=== PATIENT | female | born 1955 | race American Indian/Alaskan Native ===

== ENCOUNTER 2018-01-30 12:27 | Inpatient (IN) | payer OTHER ==
[2018-01-30] MEDS ORDERED: CARDIZEM ONE (12:44)
[2018-01-30] MEDS ORDERED: NACL 0.9% 1000 ML 1,000 ML ONE (12:45)
[2018-01-30] MEDS ORDERED: CARDIZEM IV ONE (12:48)
[2018-01-30] MEDS ORDERED: CARDIZEM/D5W 100MG/100ML 100 MG/100 ML BAG IV SCH (13:00)
--- NOTE | 2018-01-30 13:07 | Emergency Department Report ---
ED Palpitations HPI - General Stated Complaint: CHEST PAIN Source: patient, EMS, old records reviewed Mode of arrival: Stretcher Limitations: No Limitations - History of Present Illness Initial Comments: 63-year-old female with a past medical hypertension of diabetes, atrial fibrillation presents to the hospital complaining of palpitations and left- sided burning chest pain since 10 AM. Symptoms are constant without aggravating or alleviating factors. She denies nausea, vomiting, diaphoresis, or shortness of breath. Patient has been out of her Coumadin 3 days secondary to a pharmacy issue. She does not know the names of her other medication but states she has been compliant. 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 Last hospitalization here was in December 2015. Stress test normal at that time. Echocardiogram showed EF of 60-65% with mild concentric LVH and abnormal left ventricular diastolic function. - Related Data Home Medications Medication Instructions Recorded Confirmed Last Taken Hydrochlorothiazide [HCTZ] 25 mg PO QAM 01/17/16 01/17/16 01/17/16 amLODIPine [Norvasc] 10 mg PO DAILY 01/17/16 01/17/16 01/17/16 Previous Rx's Medication Instructions Recorded Last Taken Type Lisinopril [Zestril TAB] 20 mg PO QDAY #30 tablet 01/19/16 Unknown Rx Metoprolol [Lopressor TAB] 50 mg PO BID #60 tablet 01/19/16 Unknown Rx Warfarin [Coumadin] 10 mg PO QDAY #14 tablet 01/19/16 Unknown Rx Allergies Allergy/AdvReac Type Severity Reaction Status Date / Time No Known Allergies Allergy Verified 01/30/18 12:52 ED Review of Systems ROS: Stated complaint: CHEST PAIN Other details as noted in HPI Comment: All other systems reviewed and negative ED Past Medical Hx - Past Medical History Hx Hypertension: Yes Hx Diabetes: Yes Additional medical history: AFIB - Surgical History Additional Surgical History: hysterectomy - Social History Smoking Status: Never Smoker Substance Use Type: Alcohol - Medications Home Medications: Home Medications Medication Instructions Recorded Confirmed Last Taken Type Hydrochlorothiazide [HCTZ] 25 mg PO QAM 01/17/16 01/17/16 01/17/16 History amLODIPine [Norvasc] 10 mg PO DAILY 01/17/16 01/17/16 01/17/16 History Lisinopril [Zestril TAB] 20 mg PO QDAY #30 tablet 01/19/16 Unknown Rx Metoprolol [Lopressor TAB] 50 mg PO BID #60 tablet 01/19/16 Unknown Rx Warfarin [Coumadin] 10 mg PO QDAY #14 tablet 01/19/16 Unknown Rx ED Physical Exam - General Limitations: No Limitations - Other Other exam information: General: No limitations, patient is alert in no acute distress Head exam: Atraumatic, normocephalic Eyes exam: Normal appearance ENT: Moist mucous membrane, normal oropharynx Neck exam: Normal inspection, full range of motion, no meningismus nontender Respiratory exam: Clear to auscultation bilateral, no wheezes, rales, crackles Cardiovascular: Tachycardic irregular rhythm Abdomen: Soft, nondistended, and nontender, with normal bowel sounds, no rebound, or guarding Extremity: Full range of motion normal inspection no deformity, no calf tenderness or edema Back: Normal Inspection, full range of motion, no tenderness Neurologic: Alert, oriented x3, cranial nerves intact, no motor or sensory deficit Psychiatric: normal affect, normal mood Skin: Warm, dry, intact ED Course Vital Signs 01/30/18 01/30/18 01/30/18 12:34 12:36 12:40 Temperature Pulse Rate 167 H 159 H 147 H Respiratory 22 22 17 Rate Blood Pressure 118/91 O2 Sat by Pulse 99 99 99 Oximetry 01/30/18 01/30/18 01/30/18 12:45 12:48 12:50 Temperature 98.2 F Pulse Rate 150 H 97 H 91 H Respiratory 20 14 19 Rate Blood Pressure 118/91 O2 Sat by Pulse 99 99 99 Oximetry 01/30/18 01/30/18 01/30/18 12:56 13:00 13:03 Temperature Pulse Rate 91 H 91 H 90 Respiratory 18 14 Rate Blood Pressure 118/91 O2 Sat by Pulse 99 99 Oximetry 01/30/18 01/30/18 01/30/18 13:06 13:10 13:15 Temperature Pulse Rate 120 H 108 H 106 H Respiratory 14 21 19 Rate Blood Pressure 140/80 140/80 144/78 O2 Sat by Pulse 100 99 99 Oximetry 01/30/18 01/30/18 01/30/18 13:20 13:26 13:30 Temperature Pulse Rate 104 H 134 H 115 H Respiratory 16 19 18 Rate Blood Pressure 144/78 144/78 144/78 O2 Sat by Pulse 99 99 99 Oximetry 01/30/18 01/30/18 01/30/18 13:36 13:40 13:46 Temperature Pulse Rate 136 H 130 H 103 H Respiratory 16 17 16 Rate Blood Pressure 140/80 140/80 116/78 O2 Sat by Pulse 99 99 99 Oximetry 01/30/18 01/30/18 01/30/18 13:50 13:56 14:00 Temperature Pulse Rate 102 H 118 H 99 H Respiratory 16 13 15 Rate Blood Pressure 116/78 116/78 116/78 O2 Sat by Pulse 100 99 99 Oximetry 01/30/18 01/30/18 01/30/18 14:06 14:10 14:15 Temperature Pulse Rate 105 H 100 H 100 H Respiratory 15 14 15 Rate Blood Pressure 133/76 133/76 118/73 O2 Sat by Pulse 99 99 99 Oximetry - Reevaluation(s) Reevaluation #1: 01/30/18 13:09 After Cardizem 20 mg heart rate decreased from 160s to high 90s up to 120. Cardizem drip initiated for further rate control. Awaiting coag results prior to Lovenox administration. - Consultations Consultation #1: 01/30/18 14:25 case d/w with kdae Bronson with [facility], will consult ED Medical Decision Making - Lab Data Result diagrams: 01/30/18 13:05 01/30/18 13:05 Lab Results 01/30/18 01/30/18 01/30/18 Range/Units 13:05 13:05 13:05 WBC 6.3 (4.5-11.0) K/mm3 RBC 5.34 H (3.65-5.03) M/mm3 Hgb 13.7 (10.1-14.3) gm/dl Hct 42.7 (30.3-42.9) % MCV 80 (79-97) fl MCH 26 L (28-32) pg MCHC 32 (30-34) % RDW 13.9 (13.2-15.2) % Plt Count 226 (140-440) K/mm3 Lymph % (Auto) 18.8 (13.4-35.0) % [place] % (Auto) 6.9 (0.0-7.3) % Eos % (Auto) 1.0 (0.0-4.3) % Baso % (Auto) 0.5 (0.0-1.8) % Lymph # 1.2 (1.2-5.4) K/mm3 [place] # 0.4 (0.0-0.8) K/mm3 Eos # 0.1 (0.0-0.4) K/mm3 Baso # 0.0 (0.0-0.1) K/mm3 Seg Neutrophils % 72.8 H (40.0-70.0) % Seg Neutrophils # 4.6 (1.8-7.7) K/mm3 PT 13.9 (12.2-14.9) Sec. INR 1.02 (0.87-1.13) APTT 32.2 (24.2-36.6) Sec. Sodium 141 (137-145) mmol/L Potassium 3.6 (3.6-5.0) mmol/L Chloride 102.5 (98-107) mmol/L Carbon Dioxide 25 (22-30) mmol/L Anion Gap 17 mmol/L BUN 16 (7-17) mg/dL Creatinine 0.7 (0.7-1.2) mg/dL Estimated GFR > 60 ml/min BUN/Creatinine Ratio 23 % Glucose 145 H (65-100) mg/dL Calcium 10.2 (8.4-10.2) mg/dL Magnesium 1.80 (1.7-2.3) mg/dL Total Creatine Kinase (30-135) units/L CK-MB (CK-2) (0.0-4.0) ng/mL CK-MB (CK-2) Rel Index (0-4) Troponin T (0.00-0.029) ng/mL TSH (0.270-4.200) mlU/mL Free T4 (0.76-1.46) ng/dL 01/30/18 01/30/18 Range/Units 13:05 13:05 WBC (4.5-11.0) K/mm3 RBC (3.65-5.03) M/mm3 Hgb (10.1-14.3) gm/dl Hct (30.3-42.9) % MCV (79-97) fl MCH (28-32) pg MCHC (30-34) % RDW (13.2-15.2) % Plt Count (140-440) K/mm3 Lymph % (Auto) (13.4-35.0) % [place] % (Auto) (0.0-7.3) % Eos % (Auto) (0.0-4.3) % Baso % (Auto) (0.0-1.8) % Lymph # (1.2-5.4) K/mm3 [place] # (0.0-0.8) K/mm3 Eos # (0.0-0.4) K/mm3 Baso # (0.0-0.1) K/mm3 Seg Neutrophils % (40.0-70.0) % Seg Neutrophils # (1.8-7.7) K/mm3 PT (12.2-14.9) Sec. INR (0.87-1.13) APTT (24.2-36.6) Sec. Sodium (137-145) mmol/L Potassium (3.6-5.0) mmol/L Chloride (98-107) mmol/L Carbon Dioxide (22-30) mmol/L Anion Gap mmol/L BUN (7-17) mg/dL Creatinine (0.7-1.2) mg/dL Estimated GFR ml/min BUN/Creatinine Ratio % Glucose (65-100) mg/dL Calcium (8.4-10.2) mg/dL Magnesium (1.7-2.3) mg/dL Total Creatine Kinase 105 (30-135) units/L CK-MB (CK-2) 3.1 (0.0-4.0) ng/mL CK-MB (CK-2) Rel Index 2.9 (0-4) Troponin T < 0.010 (0.00-0.029) ng/mL TSH 0.862 (0.270-4.200) mlU/mL Free T4 1.26 (0.76-1.46) ng/dL - EKG Data -: EKG Interpreted by Me (SVT rate 166) EKG shows normal: axis (QRS 46), QRS complexes (QRSD 82), ST-T waves (inferior and lateral T-wave inversions) Rate: tachycardia - EKG Data When compared to previous EKG there are: changes noted 01/30/18 14:34 repeat ekg afib, rate 109, qrs axis 33, QTC 369, QRSD 100, NO STEMI - Radiology Data Radiology results: report reviewed AP CHEST: HISTORY: chest pain AP view of the chest demonstrates a normal mediastinal and cardiac contour with clear lungs and normal bony and soft tissue structures. IMPRESSION: Unremarkable AP chest. - Medical Decision Making afib rvr + hx noncompliant with coumadin. Lovenox given labs unremarkable current meds unknown cardiology consulted hospitalist informed for admission. - Differential Diagnosis A. fib RVR, thyroid, medication noncompliance, [place] Critical Care Time: No Critical care attestation.: If time is entered above; I have spent that time in minutes in the direct care of this critically ill patient, excluding procedure time. ED Disposition Clinical Impression: Diabetes mellitus, Hypertension, Atrial fibrillation with rapid ventricular response, Noncompliance with medication regimen Disposition: OP ADMIT IP TO THIS HOSP Is pt being admited?: Yes Does the pt Need Aspirin: No (given lovenox) Condition: Stable Time of Disposition: 14:23 (DR Dickerson/hosp)
[2018-01-30 13:32] LABS: Basophils % (Auto) 0.5 % (0.0-1.8); Eosinophils # (Auto) 0.1 K/mm3 (0.0-0.4); Hematocrit 42.7 % (30.3-42.9); Hemoglobin 13.7 gm/dl (10.1-14.3); Lymphocytes # (Auto) 1.2 K/mm3 (1.2-5.4); Lymphocytes % (Auto) 18.8 % (13.4-35.0); Mean Corpuscular HGB Conc 32 % (30-34); Mean Corpuscular Volume 80 fl (79-97); Monocytes # (Auto) 0.4 K/mm3 (0.0-0.8); Monocytes % (Auto) 6.9 % (0.0-7.3); Platelet Count 226 K/mm3 (140-440); Red Blood Count 5.34 M/mm3 (3.65-5.03); Red Cell Distribution Width 13.9 % (13.2-15.2)
[2018-01-30 13:35] LABS: Mean Corpuscular Hemoglobin 26 pg (28-32)
--- NOTE | 2018-01-30 13:36 | XRay Report ---
AP CHEST: HISTORY: chest pain AP view of the chest demonstrates a normal mediastinal and cardiac contour with clear lungs and normal bony and soft tissue structures. IMPRESSION: Unremarkable AP chest.
[2018-01-30 13:38] LABS: BUN/Creatinine Ratio 23; Blood Urea Nitrogen 16 mg/dL (7-17); Calcium 10.2 mg/dL (8.4-10.2); Creatine Kinase MB 3.1 ng/mL (0.0-4.0); Hemolysis Index 1
[2018-01-30 13:41] LABS: INR 1.02 (0.87-1.13)
[2018-01-30 13:42] LABS: Partial Thromboplastin Time 32.2 Sec. (24.2-36.6)
[2018-01-30 13:49] LABS: Free T4 (Free Thyroxine) 1.26 ng/dL (0.76-1.46)
[2018-01-30] MEDS ORDERED: LOVENOX SUB-Q ONE (14:21)
--- NOTE | 2018-01-30 14:33 | History and Physical Report ---
History of Present Illness Chief complaint: my heart is beating fast History of present illness: 63 YO Female with A Fib, DM, HTN, Obesity presents to ED for evaluation. Pt states that she has experienced chest palpitations and pain in her chest for the past 4 hours. Pt states that symptoms began around 10:00 hrs and have persisted since that time. Pt transported to [facility] for further care and evaluation. Pt seen and evaluated in ED and found to have A Fib with RVR. Pt initiated on cardizem drip. Cardiology consulted in ED. Pt initially admitted to ICU on cardizem drip, but was weaned off drip and initiated on beta mayito therapy. Pt found to have symptoms consistent with ACS and diastolic heart failure. Pt admitted to telemetry. Pt denies fever, chills, NVD, syncope, unilateral leg swelling, calf pain, individual/family history of DVT/PE, productive cough, unintentional weight loss, night sweats. Past History Past Medical History: atrial fib, diabetes, hypertension Past Surgical History: hysterectomy Social history: single Family history: hypertension Medications and Allergies Allergies Allergy/AdvReac Type Severity Reaction Status Date / Time No Known Allergies Allergy Verified 01/30/18 12:52 Home Medications Medication Instructions Recorded Confirmed Last Taken Type amLODIPine [Norvasc] 10 mg PO DAILY 01/17/16 01/30/18 01/17/16 History Simvastatin [Zocor] 10 mg PO DAILY 01/30/18 01/30/18 Unknown History Warfarin [Coumadin] 5 mg PO QDAY 01/30/18 01/30/18 Unknown History metFORMIN [Glucophage] 500 mg PO BID 01/30/18 01/30/18 Unknown History Active Meds: Active Medications Diltiazem HCl (Cardizem/D5w 100mg/100ml) 100 mg in 100 mls @ 5 mls/hr IV TITR KIA; Protocol Last Titration: 01/30/18 13:46 Dose: 15 mg/hr, 15 mls/hr Review of Systems Constitutional: no weight loss, no weight gain, no fever, no chills Ears, nose, mouth and throat: no ear pain, no ear discharge, no tinnitis, no decreased hearing, no nose pain, no nasal congestion Breasts: no change in shape, no swelling, no mass Cardiovascular: chest pain, palpitations, no shortness of breath, no dyspnea on exertion Respiratory: no cough, no cough with sputum, no excessive sputum, no hemoptysis , no shortness of breath Gastrointestinal: no nausea, no vomiting, no diarrhea, no constipation, no change in bowel habits Genitourinary Female: no pelvic pain, no flank pain, no menorrhagia, no dysuria , no urinary frequency, no urgency, no stress incontinence, no post void dribbling Rectal: no pain, no incontinence, no bleeding Musculoskeletal: no neck stiffness, no neck pain, no shooting arm pain, no arm numbness/tingling, no low back pain, no shooting leg pain, no leg numbness/ tingling Integumentary: no rash, no pruritis, no redness, no sores, no wounds, no jaundice Neurological: no transient paralysis, no paralysis, no weakness, no parathesias , no numbness, no tingling, no seizures, no syncope Psychiatric: no anxiety, no memory loss, no change in sleep habits, no sleep disturbances, no insomnia, no hypersomnia, no change in appetite, no change in libido Endocrine: no cold intolerance, no heat intolerance, no polyphagia, no excessive thirst, no polydipsia, no polyuria, no nocturia Hematologic/Lymphatic: no easy bruising, no easy bleeding, no lymphadenopathy, no lymphedema Allergic/Immunologic: no urticaria, no allergic rhinitis, no wheezing, no persistent infections, no anaphylaxis Exam - Constitutional Vitals: Temp Pulse Resp BP Pulse Ox 98.2 F 100 H 15 118/73 99 01/30/18 12:45 01/30/18 14:15 01/30/18 14:15 01/30/18 14:15 01/30/18 14:15 General appearance: Present: mild distress - EENT Eyes: Present: PERRL ENT: hearing intact, clear oral mucosa - Neck Neck: Present: supple, normal ROM - Respiratory Respiratory effort: normal Respiratory: bilateral: CTA - Cardiovascular Rhythm: irregularly irregular Heart Sounds: Present: S1 & S2. Absent: rub, click - Extremities Extremities: pulses symmetrical, No edema Peripheral Pulses: within normal limits - Abdominal General gastrointestinal: Present: soft, non-tender, non-distended, normal bowel sounds Female genitourinary: Present: normal - Integumentary Integumentary: Present: clear, warm, dry - Musculoskeletal Musculoskeletal: gait normal, strength equal bilaterally - Psychiatric Psychiatric: appropriate mood/affect, intact judgment & insight - Neurologic Neurologic: CNII-XII intact, moves all extremities Results - Labs CBC & Chem 7: 01/30/18 13:05 01/30/18 13:05 Labs: Abnormal lab results 01/30/18 01/30/18 Range/Units 13:05 13:05 RBC 5.34 H (3.65-5.03) M/mm3 MCH 26 L (28-32) pg Seg Neutrophils % 72.8 H (40.0-70.0) % Glucose 145 H (65-100) mg/dL Assessment and Plan - Patient Problems (1) ACS (acute coronary syndrome) Current Visit: Yes Status: Acute Plan to address problem: Serial cardiac enzymes, ekg, admit to telemetry, morphine, supplemental oxygen, nitro, aspirin, cardiology consulted in ED (2) Diastolic CHF Current Visit: Yes Status: Acute Qualifiers: Heart failure chronicity: acute Qualified Code(s): I50.31 - Acute diastolic (congestive) heart failure Plan to address problem: Strict I/O, daily weight, Echo, cardiology consulted, afterload reduction, diuresis as tolerated. (3) Atrial fibrillation with rapid ventricular response Current Visit: Yes Status: Acute Plan to address problem: Therapeutic anticoagulation, rate control with cardizem, wean off drip, continue beta mayito therapy, (4) Diabetes mellitus Current Visit: Yes Status: Acute Plan to address problem: ADA diet, insulin, accu check (5) Noncompliance with medication regimen Current Visit: Yes Status: Acute Plan to address problem: Pt counseled, (6) Hypertension Current Visit: Yes Status: Chronic Qualifiers: Hypertension type: essential hypertension Qualified Code(s): I10 - Essential (primary) hypertension Plan to address problem: monitor bp q shift, resume prehospital antihypertensive therapy (7) DVT prophylaxis Current Visit: Yes Status: Acute Plan to address problem: acd to ble while in bed
[2018-01-30] MEDS ORDERED: TYLENOL PO PRN (14:36)
[2018-01-30] MEDS ORDERED: SODIUM CHLORIDE FLUSH SYRINGE 10 ML IV PRN ×2 (14:36)
[2018-01-30] MEDS ORDERED: ZOFRAN IV PRN (14:36)
[2018-01-30] MEDS ORDERED: PROVENTIL IH PRN (14:36)
[2018-01-30] MEDS ORDERED: BABY ASPIRIN PO STA (14:36)
--- NOTE | 2018-01-30 15:07 | Consultation ---
History of Present Illness Consult date: 01/30/18 Requesting physician: ABHIJEET ANGUIANO Consult reason: atrial fibrillation History of present illness: The pt is a 63 YO female with a past medical history significant for paroxysmal atrial fibrillation, anticoagulated with coumadin, HTN, HLP and DM. She has been seen in our office in the past by Dr. Talavera (last seen in 01/2016 and did not return due to lack of insurance). She presented with complaints of chest pain and palpitations. She reports that she awoke in her normal state of health this morning. She was helping her son-in-law with some chores around the house at 10AM when she noted sudden onset chest pain. She describes her chest pain as a left-sided, constant, nonexertional burning pain which radiates down her left arm. She then noted the onset of palpitations and nausea. She sat down and took a SL nitro which did not improve her pain and so she called EMS. She currently receives her medical care and INR checks from a free clinic. She reports compliance with her "blood pressure and diabetes" medications, although she cannot recall the name of these medications. She has not taken her coumadin for 3 days because her pharmacy made an error and did not refill this medication. Following arrival to ED, she was noted to be in AFib with RVR and was initiated on a cardizem gtt. Echo done 12/2015 showed mild LVH, EF 60-65%, diastolic dysfunction. Lexiscan MPI stress test done 01/2016 was negative. Past History Past Medical History: atrial fib, diabetes, hypertension, hyperlipidemia Past Surgical History: No surgical history Social history: lives with family, smoking. denies: alcohol abuse, prescription drug abuse Medications and Allergies Allergies Allergy/AdvReac Type Severity Reaction Status Date / Time No Known Allergies Allergy Verified 01/30/18 12:52 Home Medications Medication Instructions Recorded Confirmed Last Taken Type Hydrochlorothiazide [HCTZ] 25 mg PO QAM 01/17/16 01/17/16 01/17/16 History amLODIPine [Norvasc] 10 mg PO DAILY 01/17/16 01/17/16 01/17/16 History Lisinopril [Zestril TAB] 20 mg PO QDAY #30 tablet 01/19/16 Unknown Rx Metoprolol [Lopressor TAB] 50 mg PO BID #60 tablet 01/19/16 Unknown Rx Warfarin [Coumadin] 10 mg PO QDAY #14 tablet 01/19/16 Unknown Rx Active Meds: Active Medications Acetaminophen (Tylenol) 650 mg PO Q4H PRN PRN Reason: Pain MILD(1-3)/Fever >100.5/FONTENOT Albuterol (Proventil) 2.5 mg IH Q4HRT PRN PRN Reason: Shortness Of Breath Diltiazem HCl (Cardizem/D5w 100mg/100ml) 100 mg in 100 mls @ 5 mls/hr IV TITR KIA; Protocol Last Titration: 01/30/18 13:46 Dose: 15 mg/hr, 15 mls/hr Ondansetron HCl (Zofran) 4 mg IV Q8H PRN PRN Reason: Nausea And Vomiting Sodium Chloride (Sodium Chloride Flush Syringe 10 Ml) 10 ml IV BID KIA Sodium Chloride (Sodium Chloride Flush Syringe 10 Ml) 10 ml IV PRN PRN PRN Reason: LINE FLUSH Sodium Chloride (Sodium Chloride Flush Syringe 10 Ml) 10 ml IV PRN PRN PRN Reason: LINE FLUSH Review of Systems Constitutional: no weight loss, no weight gain, no fever, no chills, no sweats Ears, nose, mouth and throat: no ear pain, no nose pain, no sinus pressure, no sinus pain Cardiovascular: chest pain, palpitations, rapid/irregular heart beat, high blood pressure, no orthopnea, no edema, no syncope, no lightheadedness, no shortness of breath, no dyspnea on exertion, no leg edema, no decreased exercise tolerance Respiratory: no cough, no shortness of breath, no dyspnea on exertion, no congestion, no wheezing, no pain on inspiration Gastrointestinal: nausea, no abdominal pain, no vomiting, no diarrhea, no constipation, no change in bowel habits Genitourinary Female: no dyspareunia, no pelvic pain, no flank pain, no menorrhagia, no dysuria Musculoskeletal: no neck stiffness, no neck pain Integumentary: no rash, no pruritis, no redness, no sores, no wounds Neurological: no head injury, no paralysis, no weakness, no parathesias, no numbness, no tingling, no seizures, no syncope Psychiatric: no anxiety Endocrine: no cold intolerance, no heat intolerance Hematologic/Lymphatic: no easy bruising, no easy bleeding, no lymphadenopathy Allergic/Immunologic: no urticaria, no wheezing, no persistent infections Physical Examination Vital Signs Pulse Resp Pulse Ox 167 H 22 99 01/30/18 12:34 01/30/18 12:34 01/30/18 12:34 General appearance: no acute distress HEENT: Positive: PERRL, Normocephaly, Mucus Membranes Moist Neck: Positive: neck supple, trachea midline Cardiac: Positive: irregularly irregular, S1/S2, Systolic Murmur, Tachycardia Lungs: Positive: Decreased Breath Sounds Neuro: Positive: Grossly Intact Abdomen: Positive: Soft. Negative: Tender Skin: Positive: Clear. Negative: Rash, Wound Musculoskeletal: No Fluid Collection, No Pain, Normal Range of Motion Extremities: Absent: edema Results 01/30/18 13:05 01/30/18 13:05 Cardiac Enzymes 01/30/18 Range/Units 13:05 CK-MB (CK-2) 3.1 (0.0-4.0) ng/mL Coagulation 01/30/18 Range/Units 13:05 PT 13.9 (12.2-14.9) Sec. INR 1.02 (0.87-1.13) APTT 32.2 (24.2-36.6) Sec. CBC 01/30/18 Range/Units 13:05 WBC 6.3 (4.5-11.0) K/mm3 RBC 5.34 H (3.65-5.03) M/mm3 Hgb 13.7 (10.1-14.3) gm/dl Hct 42.7 (30.3-42.9) % Plt Count 226 (140-440) K/mm3 Lymph # 1.2 (1.2-5.4) K/mm3 [place] # 0.4 (0.0-0.8) K/mm3 Eos # 0.1 (0.0-0.4) K/mm3 Baso # 0.0 (0.0-0.1) K/mm3 Comprehensive Metabolic Panel 01/30/18 Range/Units 13:05 Sodium 141 (137-145) mmol/L Potassium 3.6 (3.6-5.0) mmol/L Chloride 102.5 (98-107) mmol/L Carbon Dioxide 25 (22-30) mmol/L BUN 16 (7-17) mg/dL Creatinine 0.7 (0.7-1.2) mg/dL Glucose 145 H (65-100) mg/dL Calcium 10.2 (8.4-10.2) mg/dL - Imaging and Cardiology Echo: pending, report reviewed (12/2015 showed mild LVH, EF 60-65%, diastolic dysfunction. ) EKG: report reviewed, image reviewed EKG interpretations - Telemetry EKG Rhythm: Atrial Fibrillation - EKG Supraventricular dysrhythmia: atrial fibrillation Assessment and Plan Assessment: Paroxysmal atrial fibrillation with RVR - anticoagulated with Coumadin; thyroid profile WNL Subtherapeutic INR HTN HLP DM Plan: F/u echo. Optimize HR - initiate PO lopressor and wean cardizem gtt as tolerated. Resume home coumadin with tx INR 2-3 and continue lovenox BID until INR becomes therapeutic. Assessment and plan reviewed with pt at bedside. The patient has been seen in conjunction with Dr. Dumas who agrees with the assessment and plan of care.
[2018-01-30 15:13] LABS: Chol/HDL Ratio 2.94 %
[2018-01-30] MEDS ORDERED: LOPRESSOR ONE (15:35)
[2018-01-30] MEDS: LOPRESSOR PO SCH ×2 (15:41→22:55)
[2018-01-30] MEDS: COUMADIN PO SCH (19:33)
[2018-01-30] MEDS ORDERED: SODIUM CHLORIDE FLUSH SYRINGE 10 ML IV SCH (22:00)
[2018-01-30] MEDS: LOVENOX SUB-Q SCH (23:00)
--- NOTE | 2018-01-31 08:34 | Progress Note ---
Assessment and Plan Assessment: Paroxysmal atrial fibrillation with RVR -->currently SR anticoagulated with Coumadin; thyroid profile WNL Subtherapeutic INR HTN HLP DM Plan: Patient converted to SR overnight. Change metoprolol to toprol xl 25mg daily. Continue coumadin with tx INR 2-3 and continue lovenox BID until INR becomes therapeutic. Will f/u echo results. Assessment and plan reviewed with pt at bedside. The patient has been seen in conjunction with Dr. Dumas who agrees with the assessment and plan of care. Subjective Date of service: 01/31/18 Principal diagnosis: paroxysmal afib Interval history: The patient is resting in bed. No new complaints. Denies chest pain or palpitations. Sinus rhythm on the monitor. Objective Last Vital Signs Temp 98.2 F 01/31/18 04:32 Pulse 74 01/31/18 08:07 Resp 18 01/31/18 04:32 BP 150/83 01/31/18 04:32 Pulse Ox 97 01/31/18 04:32 - Physical Examination General: No Apparent Distress HEENT: Positive: PERRL, Normocephaly, Mucus Membranes Moist Neck: Positive: neck supple, trachea midline Cardiac: Positive: Reg Rate and Rhythm, S1/S2 Lungs: Positive: clear to auscultation Neuro: Positive: Grossly Intact Abdomen: Positive: Soft. Negative: Tender Skin: Positive: Clear. Negative: Rash, Wound Musculoskeletal: No Fluid Collection, No Pain, Normal Range of Motion Extremities: Absent: edema - Labs and Meds Cardiac Enzymes 01/30/18 Range/Units 13:05 CK-MB (CK-2) 3.1 (0.0-4.0) ng/mL Coagulation 01/30/18 Range/Units 13:05 PT 13.9 (12.2-14.9) Sec. INR 1.02 (0.87-1.13) APTT 32.2 (24.2-36.6) Sec. Lipids 01/30/18 Range/Units 14:40 Triglycerides 96 (2-149) mg/dL Cholesterol 150 (50-199) mg/dL HDL Cholesterol 51 (40-59) mg/dL Cholesterol/HDL Ratio 2.94 % CBC 01/30/18 Range/Units 13:05 WBC 6.3 (4.5-11.0) K/mm3 RBC 5.34 H (3.65-5.03) M/mm3 Hgb 13.7 (10.1-14.3) gm/dl Hct 42.7 (30.3-42.9) % Plt Count 226 (140-440) K/mm3 Lymph # 1.2 (1.2-5.4) K/mm3 [place] # 0.4 (0.0-0.8) K/mm3 Eos # 0.1 (0.0-0.4) K/mm3 Baso # 0.0 (0.0-0.1) K/mm3 Comprehensive Metabolic Panel 01/30/18 Range/Units 13:05 Sodium 141 (137-145) mmol/L Potassium 3.6 (3.6-5.0) mmol/L Chloride 102.5 (98-107) mmol/L Carbon Dioxide 25 (22-30) mmol/L BUN 16 (7-17) mg/dL Creatinine 0.7 (0.7-1.2) mg/dL Glucose 145 H (65-100) mg/dL Calcium 10.2 (8.4-10.2) mg/dL - Imaging and Cardiology EKG: report reviewed, image reviewed Echo: pending, report reviewed (12/2015 showed mild LVH, EF 60-65%, diastolic dysfunction. ) - Telemetry EKG Rhythm: Sinus Rhythm
[2018-01-31] MEDS: LOPRESSOR PO SCH (11:09)
[2018-01-31] MEDS: LOVENOX SUB-Q SCH (11:10)
[2018-01-31 11:26] LABS: INR 1.11 (0.87-1.13)
--- NOTE | 2018-01-31 12:13 | Discharge Summary ---
Providers - Providers Date of Admission: 01/30/18 15:32 Attending physician: SHANTAL DENNISON MD 01/30/18 Consult to Cardiac Rehabilitation [CONS] Routine Reason For Exam: Phase I 01/30/18 14:18 Consult to Physician [CONS] Urgent Comment: notified and saw pt in er [id number] Consulting Provider: ESTHELA BOATENG Physician Instructions: Reason For Exam: afib with rvr Primary care physician: [employer] Hospitalization Condition: Stable Hospital course: 63 YO Female with A Fib, DM, HTN, Obesity presents to ED for evaluation. Pt states that she has experienced chest palpitations and pain in her chest for the past 4 hours. Pt states that symptoms began around 10:00 hrs and have persisted since that time. Pt transported to [facility] for further care and evaluation. Pt seen and evaluated in ED and found to have A Fib with RVR. Pt initiated on cardizem drip. Cardiology consulted in ED. Pt initially admitted to ICU on cardizem drip, but was weaned off drip and initiated on beta mayito therapy. Pt found to have symptoms consistent with ACS and diastolic heart failure. Pt admitted to telemetry. Pt denies fever, chills, NVD, syncope, unilateral leg swelling, calf pain, individual/family history of DVT/PE, productive cough, unintentional weight loss, night sweats. Disposition: DC-01 TO HOME OR SELFCARE Time spent for discharge: 35 MINS Exam - Constitutional Vitals: Temp Pulse Resp BP Pulse Ox 98.2 F 74 18 150/83 97 01/31/18 04:32 01/31/18 08:07 01/31/18 04:32 01/31/18 04:32 01/31/18 04:32 Plan Activity: advance as tolerated, fall precautions Diet: low cholesterol Special Instructions: record daily BP diary Additional Instructions: FOLLOW AT THE [facility] FOR INR CHECK IN 3 DAYS Follow up with: ELAN RIOJAS MD [Primary Care Provider] - 7 Days RADHA BLACKWELL MD [Staff Physician] - 7 Days Forms: Warfarin Discharge Instruction Prescriptions: Metoprolol [Lopressor TAB] 50 mg PO BID #60 tablet Warfarin [Coumadin] 5 mg PO DAILY@1700 #30 tablet
[2018-01-31 16:40] VITALS: BP 184/85
[2018-01-31] MEDS: COUMADIN PO SCH (18:10)
== END 2018-01-31 19:18 | disposition home or self-care (01) | DRG 308 ==
LOC: ED 12:27 → 4A 15:32
PROVIDERS: ADMIT Internal Medicine; ATTEND Internal Medicine
DX: I48.0 Paroxysmal atrial fibrillation (principal); I50.31 Acute diastolic (congestive) heart failure; I24.9 Acute ischemic heart disease, unspecified; I11.0 Hypertensive heart disease with heart failure; E78.5 Hyperlipidemia, unspecified; E11.9 Type 2 diabetes mellitus without complications; Z79.899 Other long term (current) drug therapy; Z88.8 Allergy status to other drugs, medicaments and biological substances; Z90.710 Acquired absence of both cervix and uterus; Z91.14 Patient's other noncompliance with medication regimen; Z82.49 Family history of ischemic heart disease and other diseases of the circulatory system; Z79.01 Long term (current) use of anticoagulants; Z79.818 Long term (current) use of other agents affecting estrogen receptors and estrogen levels
CPT/HCPCS: 36415; 71045; 80048; 80061; 82550; 82553; 82962; 83735; 83880; 84439; 84443; 84484; 85025; 85610; 85730; 93005; 93010; 93306; 96372; 96374; J0153; J1650; J7030